=== PATIENT | female | born 1985 | race Caucasian/White ===

== ENCOUNTER → 2016-09-19 | Outpatient (CLI) | payer BC | END | disposition home or self-care (01) | LOC: LABWHC1 13:31 | PROVIDERS: ATTEND Obstetrics & Gynecology | DX: O02.1 Missed abortion (principal); Z3A.00 Weeks of gestation of pregnancy not specified | CPT/HCPCS: 36415; 84702 ==

== ENCOUNTER → 2017-01-04 | Outpatient (CLI) | payer BC | END | disposition home or self-care (01) | LOC: LABWHC1 13:57 | PROVIDERS: ATTEND Obstetrics & Gynecology | DX: O20.0 Threatened abortion (principal); Z3A.00 Weeks of gestation of pregnancy not specified | CPT/HCPCS: 36415; 84702 ==

== ENCOUNTER → 2017-01-06 | Outpatient (CLI) | payer BC | END | disposition home or self-care (01) | LOC: LABWHC1 14:20 | PROVIDERS: ATTEND Obstetrics & Gynecology | DX: O20.0 Threatened abortion (principal); Z3A.00 Weeks of gestation of pregnancy not specified | CPT/HCPCS: 36415; 84702 ==

== ENCOUNTER → 2021-08-03 | Outpatient (CLI) | payer BC ==
--- NOTE | 2021-08-03 08:34 | US ---
EXAMINATION TYPE: US thyroid st tissue head/neck DATE OF EXAM: 08/03/2021 COMPARISON: NONE CLINICAL HISTORY: R22.0,PALPABLE ABNORMALITY NECK. GLAND SIZE: Right Lobe: 5.3 x 1.7 x 1.8 cm Overall Parenchyma: homogenous Left Lobe: 4.4 x 2.0 x 1.7 cm Overall Parenchyma: homogeneous Isthmus Thickness: 0.3 cm NODULES RIGHT: # of nodules measured on right: 1 1. 2.7 X 1.3 x 1.7 cm, mid, solid or almost completely solid, hypoechoic nodule, which is wider edgar n tall, with lobulated or irregular margins, without echogenic foci. No prior This may be a cluster of nodules vs one nodule. LEFT: # of nodules measured on left: 1 1. 2.0 X 1.9 x 1.5 cm, mid, solid or almost completely solid, hypoechoic nodule, which is wider edgar n tall, with margins, echogenic foci. No prior Bilateral neck scanned, no evidence of lymphadenopathy. IMPRESSION: Nonspecific thyroid nodularity.
== END | disposition home or self-care (01) ==
LOC: RADUSWWP 07:03
PROVIDERS: ATTEND Obstetrics & Gynecology
DX: E04.2 Nontoxic multinodular goiter (principal)
CPT/HCPCS: 76536

== ENCOUNTER → 2021-08-19 | Outpatient (CLI) | payer BC ==
--- NOTE | 2021-08-20 12:25 | MM ---
Reason for exam: screening (asymptomatic). Baseline mammogram. History: Taking hormonal contraceptives for 15 years. Physical Findings: Nurse did not find any significant physical abnormalities on exam. MG Screening Mammo w CAD Bilateral CC and MLO view(s) were taken. The breast tissue is heterogeneously dense. This may lower the sensitivity of mammography. No suspicious calcifications are seen. Nodule upper outer right breast zone C. ASSESSMENT: Incomplete: need additional imaging evaluation, BI-RAD 0 RECOMMENDATION: Special view mammogram of the right breast. If lesion persists on supplemental views, image directed ultrasound is recommended. [facility] will attempt to contact patient to return for supplemental views and ultrasound if indicated.
== END | disposition home or self-care (01) ==
LOC: RADMAMWWP 10:26
PROVIDERS: ATTEND Obstetrics & Gynecology
DX: Z12.31 Encounter for screening mammogram for malignant neoplasm of breast (principal)
CPT/HCPCS: 77067

== ENCOUNTER → 2021-09-02 | Outpatient (CLI) | payer BC ==
--- NOTE | 2021-09-06 10:34 | MM ---
Reason for exam: additional evaluation requested from abnormal screening. Last mammogram was performed less than 1 month ago. History: Taking hormonal contraceptives for 15 years. Physical Findings: Breast exam preformed at baseline screening. MG Work Up Mamm w CAD RT Spot compression CC, spot compression MLO, and LM view(s) were taken of the right breast. Prior study comparison: August 19, 2021, bilateral MG screening mammo w CAD. The breast tissue is heterogeneously dense. This may lower the sensitivity of mammography. 9mm nodular asymmetry remains laterally and 7mm medially. However, no correlate on spot MLO or lateral view. These results were verbally communicated with the patient and result sheet given to the patient on 09/02/21. ASSESSMENT: Incomplete: need additional imaging evaluation, BI-RAD 0 RECOMMENDATION: Ultrasound of the right breast.
--- NOTE | 2021-09-06 10:35 | USB ---
Reason for exam: additional evaluation requested from abnormal screening. History: Taking hormonal contraceptives for 15 years. US Breast Workup RT Right complete breast ultrasound includes all four quadrants, the retroareolar region and axilla. Finding demonstrates a 0.6 x 0.4 x 0.6cm cystic lesion at 9 o'clock, benign, possible mammographic correlate. 6 month follow up mammogram recommended. These results were verbally communicated with the patient and result sheet given to the patient on 09/02/21. ASSESSMENT: Probably benign, BI-RAD 3 RECOMMENDATION: Follow-up diagnostic mammogram of the right breast in 6 months.
== END | disposition home or self-care (01) ==
LOC: RADMAMWWP 10:15
PROVIDERS: ATTEND Obstetrics & Gynecology
DX: N60.01 Solitary cyst of right breast (principal); N64.89 Other specified disorders of breast
CPT/HCPCS: 77065

== ENCOUNTER → 2022-06-14 | Outpatient (CLI) | payer BC ==
--- NOTE | 2022-06-14 10:02 | MM ---
Reason for Exam: Follow-up at short interval from prior study. Last screening mammogram was performed 10 month(s) ago. Patient History: Menarche at age 12. First Full-Term at age 28. Patient used Hormonal Contraceptives for 15 years. Last menstrual period: 05/15/2022 Risk Values: Rashida 5 year model risk: 0.4%. NCI Lifetime model risk: 11.2%. Prior Study Comparison: 08/19/2021 Bilateral Screening Mammogram, [facility]. 09/02/2021 Right Diagnostic Mammogram, [facility]. 09/02/2021 Right Diagnostic Ultrasound, [facility]. Tissue Density: Right: The breast tissue is heterogeneously dense. This may lower the sensitivity of mammography. Findings: Analyzed By CAD. The areas of concern on prior mammogram show no interval growth. No new distortion or suspicious group of microcalcification in the right breast. Overall Assessment: Incomplete: need additional imaging evaluation, BI-RAD 0 Management: Diagnostic Breast Ultrasound of the right breast. Repeat targeted ultrasound right breast. Electronically signed and approved by: Barry Sheldon M.D.
--- NOTE | 2022-06-14 10:22 | USB ---
Reason for Exam: Follow-up at short interval from prior study. Patient History: Menarche at age 12. First Full-Term at age 28. Patient used Hormonal Contraceptives for 15 years. Risk Values: Rashida 5 year model risk: 0.4%. NCI Lifetime model risk: 11.2%. Technique: Method: Targeted. Prior Study Comparison: 08/19/2021 Bilateral Screening Mammogram, [facility]. 09/02/2021 Right Diagnostic Mammogram, [facility]. Findings: The upper outer quadrant of the left breast, the axilla of the right breast and the retroareolar of the right breast were scanned. No solid or cystic masses are identified. Overall Assessment: Negative, BI-RAD 1 Management: Screening Mammogram of both breasts at age 39. Patient told the findings and recommendation at time of dictation. Electronically signed and approved by: Barry Sheldon M.D.
== END | disposition home or self-care (01) ==
LOC: RADMAMWWP 09:41
PROVIDERS: ATTEND Obstetrics & Gynecology
DX: R92.8 Other abnormal and inconclusive findings on diagnostic imaging of breast (principal)
CPT/HCPCS: 77065

== ENCOUNTER → 2023-05-17 | Outpatient (CLI) | payer BC ==
--- NOTE | 2023-05-17 16:07 | US ---
EXAMINATION TYPE: US thyroid st tissue head/neck DATE OF EXAM: 05/17/2023 COMPARISON: 08/03/21 CLINICAL INDICATION: Female, 37 years old with history of E04.9 Enlarged thyroid; GLAND SIZE: Right Lobe: 5.9 x 2.0 x 1.9 cm Overall Parenchyma: Homogeneous Left Lobe: 5.1 x 2.4 x 1.9 cm Overall Parenchyma: Homogeneous Isthmus Thickness: 0.30 cm NODULES RIGHT: # of nodules measured on right: 1 1. 2.8 X 1.6 x 2.6 cm, mid , solid or almost completely solid, hypoechoic nodule, which is wider th an tall, with lobulated or irregular margins, without echogenic foci. TR 4 Prior size: 2.7 x 1.3 x 1.7 cm LEFT: # of nodules measured on left: 1 1. 1.9 X 2.1 x 1.9 cm, mid , solid or almost completely solid, hypoechoic nodule, which is taller t chester wide, with lobulated or irregular margins, without echogenic foci. TR 5 Prior size: 2.0 x 1.9 x 1.5 cm ISTHMUS: # of nodules measured in the isthmus: 0 IMPRESSION: 1. Highly suspicious left lobe thyroid nodule. Fine-needle aspiration recommended at this is not been performed. 2. Stable appearing right lobe thyroid nodule. This is moderately suspicious. If this has not been bi opsied, fine needle aspiration can be performed. 2017 ACR TI-RADS LEVEL: TI-RADS 5 - Highly Suspicious: Follow if > 0.5 cm, FNA if > 1.0 cm *Highest TI-RADS level nodule reported
[2023-05-17 16:11] LABS: Basophils % (A) 0 %; Eosinophils # (A) 0.1 k/uL (0-0.7); Eosinophils % (A) 3 %; HCT 39.5 % (34.0-46.0); HGB 12.9 gm/dL (11.4-16.0); Lymphocytes # (A) 1.6 k/uL (1.0-4.8); Lymphocytes % (A) 28 %; MCH 32.7 pg (25.0-35.0); MCHC 32.6 g/dL (31.0-37.0); MCV 100.3 fL (80.0-100.0); Mean Platelet Volume 11.9; Monocytes # (A) 0.4 k/uL (0-1.0); Monocytes % (A) 7 %; Neutrophils # (A) 3.3 k/uL (1.3-7.7); Neutrophils % (A) 59 %; Platelet Count 177 k/uL (150-450); RBC 3.94 m/uL (3.80-5.40); RDW 12.3 % (11.5-15.5); WBC 5.5 k/uL (3.8-10.6)
[2023-05-18 05:26] LABS: % Iron Saturation 26.41 (12.00-45.00); Ferritin 79.5 ng/mL (10.0-291.0)
== END | disposition home or self-care (01) ==
LOC: RADUSWWP 14:18
PROVIDERS: ATTEND Internal Medicine
DX: E04.1 Nontoxic single thyroid nodule (principal); E04.9 Nontoxic goiter, unspecified; D69.6 Thrombocytopenia, unspecified
CPT/HCPCS: 76536; 82607; 82728; 82746; 83540; 83550; 85025

== ENCOUNTER 2023-06-30 17:39 | Emergency (ER) | payer BC ==
[2023-06-30] MEDS ORDERED: IBUPROFEN 600 MG TAB PO STA (18:19)
[2023-06-30] MEDS ORDERED: ACETAMINOPHEN TAB 500 MG TAB PO STA (18:19)
[2023-06-30] MEDS ORDERED: SODIUM CHLORIDE 0.9% 1,000 ML IV STA ×2 (18:19→21:12)
--- NOTE | 2023-06-30 18:20 | ED ---
Weakness HPI - General Chief complaint: Allergic Reaction Stated complaint: SOB-allergic reaction Time Seen by Provider: 06/30/23 17:55 Source: patient, family, RN notes reviewed, old records reviewed Mode of arrival: ambulatory Limitations: no limitations - History of Present Illness Initial comments: This is a 37-year-old female to the emergency department today. The patient today for evaluation regards to not feeling well weakness flush elevated heart rate. Patient recently treated for urinary tract infection with antibiotics with no improvement in symptoms. Patient did normal activity today and then follow she is given a pass out for lightheaded dizzy recently with back pain that coincided with urinary tract infection. Patient feels very flushed without any significant medical history other complaints. MD Complaint: generalized weakness (Near syncopal event lightheaded and dizzy) -: hour(s) Location: generalized, RLE Severity scale (1-10): 7 Quality: tingling Consistency: constant Improves with: none Worsens with: none Context: recent illness (Urinary tract infection) Associated Symptoms: dysuria, fever/chills - Related Data Previous Rx's Medication Instructions Recorded Sulfamethox-Tmp 800-160Mg [Bactrim 1 tab PO Q12HR #14 tab 06/30/23 DS 800-160 mg] Allergies Allergy/AdvReac Type Severity Reaction Status Date / Time No Known Allergies Allergy Verified 05/31/23 13:03 Review of Systems ROS Statement: Those systems with pertinent positive or pertinent negative responses have been documented in the HPI. ROS Other: All systems not noted in ROS Statement are negative. Past Medical History Past Medical History: Thyroid Disorder Additional Past Medical History / Comment(s): UTI History of Any Multi-Drug Resistant Organisms: None Reported Past Surgical History: No Surgical Hx Reported Additional Past Surgical History / Comment(s): wisdom teeth removed, varicose vein removed right upper thigh. Past Anesthesia/Blood Transfusion Reactions: No Reported Reaction Past Psychological History: No Psychological Hx Reported Smoking Status: Former smoker Past Alcohol Use History: Rare Past Drug Use History: Marijuana - Past Family History Mother Family Medical History: Thyroid Disorder General Exam Limitations: no limitations General appearance: alert, in no apparent distress, anxious Head exam: Present: atraumatic, normocephalic, normal inspection Eye exam: Present: normal appearance, PERRL, EOMI. Absent: scleral icterus, conjunctival injection, periorbital swelling ENT exam: Present: normal exam, mucous membranes moist Neck exam: Present: normal inspection. Absent: tenderness, meningismus, lymphadenopathy Respiratory exam: Present: normal lung sounds bilaterally. Absent: respiratory distress, wheezes, rales, rhonchi, stridor Cardiovascular Exam: Present: normal rhythm, tachycardia, normal heart sounds. Absent: systolic murmur, diastolic murmur, rubs, gallop, clicks GI/Abdominal exam: Present: soft, normal bowel sounds. Absent: distended, tenderness, guarding, rebound, rigid Extremities exam: Present: normal inspection, full ROM, normal capillary refill. Absent: tenderness, pedal edema, joint swelling, calf tenderness Back exam: Present: normal inspection Neurological exam: Present: alert, oriented X3, CN II-XII intact Psychiatric exam: Present: normal affect, normal mood Skin exam: Present: warm, dry, intact, normal color. Absent: rash Course Vital Signs 06/30/23 06/30/23 17:45 22:05 Temperature 99.5 F 98.2 F Pulse Rate 120 H 85 Respiratory 24 20 Rate Blood Pressure 179/88 114/60 O2 Sat by Pulse 99 98 Oximetry - Reevaluation(s) Reevaluation #1: 06/30/23 20:12 Medical record is reviewed Reevaluation #2: 06/30/23 20:12 Patient symptoms are improving Reevaluation #3: Patient informed results and questions answered Reevaluation #4: 06/30/23 20:12 Was pt. sent in by a medical professional or institution (, PA, PIGMENT MIXER, urgent care, hospital, or senior care...) When possible be specific @ -no Did you speak to anyone other than the patient for history (EMS, parent, family, police, friend...)? What history was obtained from this source @ -no Did you review nursing and triage notes (agree or disagree)? Why? @ -agree Are old charts reviewed (outside hosp., previous admission, EMS record, old EKG, old radiological studies, urgent care reports/EKG's, senior care records)? Report findings @ -yes Differential Diagnosis (chest pain, altered mental status, abdominal pain women, abdominal pain men, vaginal bleeding, weakness, fever, dyspnea, syncope, headache, dizziness, GI bleed, back pain, seizure, CVA, palpatations, mental health, musculoskeletal)? @ -prior EKG interpreted by me (3pts min.). @ -no X-rays interpreted by me (1pt min.). @ -no CT interpreted by me (1pt min.). @ -yes U/S interpreted by me (1pt. min.). @ -no What testing was considered but not performed or refused? (CT, X-rays, U/S, labs)? Why? @ -none What meds were considered but not given or refused? Why? @ -none Did you discuss the management of the patient with other professionals (professionals i.e. , PA, PIGMENT MIXER, lab, RT, psych nurse, social work program coordinator, director of student aid, teacher, fire officer, piano case and bench assembler)? Give summary @ -no Was smoking cessation discussed for >3mins.? @ -no Was critical care preformed (if so, how long)? @ -no Were there social determinants of health that impacted care today? How? (Homelessness, low income, unemployed, alcoholism, drug addiction, transportation, low edu. Level, literacy, decrease access to med. care, usp, rehab)? @ -none Was there de-escalation of care discussed even if they declined (Discuss DNR or withdrawal of care, Hospice)? DNR status @ -no What co-morbidities impacted this encounter? (DM, HTN, Smoking, COPD, CAD, Cancer, CVA, ARF, Chemo, Hep., AIDS, mental health diagnosis, sleep apnea, morbid obesity)? @ -none Was patient admitted / discharged? Hospital course, mention meds given and route, prescriptions, significant lab abnormalities, going to OR and other pertinent info. @ - 37 female to the emergency department for evaluation of weakness as well as patient feels flushed feel like she may pass out. Patient significant dehydrated with urinary tract infection likely does have hydronephrosis on computed tomography scan. Patient increased antibiotics for 2 weeks and she can be discharged home Discharge Undiagnosed new problem with uncertain prognosis? @ -no Drug Therapy requiring intensive monitoring for toxicity (Heparin, Nitro, Insulin, Cardizem)? @ -no Were any procedures done? @ -no Diagnosis/symptom? @ -Pyelonephritis Acute, or Chronic, or Acute on Chronic? @ -Acute Uncomplicated (without systemic symptoms) or Complicated (systemic symptoms)? @ -Complicated Side effects of treatment? @ -no Exacerbation, Progression, or Severe Exacerbation? @ -exacerbation Poses a threat to life or bodily function? How? (Chest pain, USA, AR, pneumonia, PE, COPD, DKA, ARF, appy, cholecystitis, CVA, Diverticulitis, Homicidal, Suicidal, threat to staff... and all critical care pts) @ -yes with pyelonephritis and sepsis Medical Decision Making - Medical Decision Making 37 female to the emergency department for evaluation of weakness as well as patient feels flushed feel like she may pass out. Patient significant dehydrated with urinary tract infection likely does have hydronephrosis on computed tomography scan. Patient increased antibiotics for 2 weeks and she can be discharged home - Lab Data Result diagrams: 06/30/23 19:50 06/30/23 19:50 Lab Results 06/30/23 06/30/23 06/30/23 Range/Units 19:50 19:50 19:50 WBC 8.5 (3.8-10.6) k/uL RBC 4.19 (3.80-5.40) m/uL Hgb 13.8 (11.4-16.0) gm/dL Hct 40.0 (34.0-46.0) % MCV 95.6 (80.0-100.0) fL MCH 32.9 (25.0-35.0) pg MCHC 34.4 (31.0-37.0) g/dL RDW 11.8 (11.5-15.5) % Plt Count 159 (150-450) k/uL MPV 11.5 Neutrophils % 79 % Lymphocytes % 14 % Monocytes % 5 % Eosinophils % 1 % Basophils % 0 % Neutrophils # 6.7 (1.3-7.7) k/uL Lymphocytes # 1.1 (1.0-4.8) k/uL Monocytes # 0.5 (0-1.0) k/uL Eosinophils # 0.0 (0-0.7) k/uL Basophils # 0.0 (0-0.2) k/uL Manual Slide Review Performed Large Platelets Present RBC Morphology Normal Sodium 133 L (137-145) mmol/L Potassium 4.1 (3.5-5.1) mmol/L Chloride 101 (98-107) mmol/L Carbon Dioxide 19 L (22-30) mmol/L Anion Gap 13 mmol/L BUN 18 H (7-17) mg/dL Creatinine 0.79 (0.52-1.04) mg/dL Est GFR (CKD-EPI)AfAm >90 (>60 ml/min/1.73 sqM) Est GFR (CKD-EPI)NonAf >90 (>60 ml/min/1.73 sqM) Glucose 98 (74-99) mg/dL Plasma Lactic Acid Aj (0.7-2.0) mmol/L Calcium 9.4 (8.4-10.2) mg/dL Phosphorus 4.4 (2.5-4.5) mg/dL Magnesium 2.2 (1.6-2.3) mg/dL Total Bilirubin 0.7 (0.2-1.3) mg/dL AST 29 (14-36) U/L ALT 16 (4-34) U/L Alkaline Phosphatase 63 (38-126) U/L Troponin I (0.000-0.034) ng/mL NT-Pro-B Natriuret Pep 38 pg/mL Total Protein 7.4 (6.3-8.2) g/dL Albumin 4.2 (3.5-5.0) g/dL TSH 0.709 (0.465-4.680) mIU/L Urine Color Colorless Urine Appearance Clear (Clear) Urine pH 6.5 (5.0-8.0) Ur Specific [place] 1.004 (1.001-1.035) Urine Protein Negative (Negative) Urine Glucose (UA) Negative (Negative) Urine Ketones Negative (Negative) Urine Blood Negative (Negative) Urine Nitrite Negative (Negative) Urine Bilirubin Negative (Negative) Urine Urobilinogen <2.0 (<2.0) mg/dL Ur Leukocyte Esterase Negative (Negative) 06/30/23 06/30/23 Range/Units 19:50 19:50 WBC (3.8-10.6) k/uL RBC (3.80-5.40) m/uL Hgb (11.4-16.0) gm/dL Hct (34.0-46.0) % MCV (80.0-100.0) fL MCH (25.0-35.0) pg MCHC (31.0-37.0) g/dL RDW (11.5-15.5) % Plt Count (150-450) k/uL MPV Neutrophils % % Lymphocytes % % Monocytes % % Eosinophils % % Basophils % % Neutrophils # (1.3-7.7) k/uL Lymphocytes # (1.0-4.8) k/uL Monocytes # (0-1.0) k/uL Eosinophils # (0-0.7) k/uL Basophils # (0-0.2) k/uL Manual Slide Review Large Platelets RBC Morphology Sodium (137-145) mmol/L Potassium (3.5-5.1) mmol/L Chloride (98-107) mmol/L Carbon Dioxide (22-30) mmol/L Anion Gap mmol/L BUN (7-17) mg/dL Creatinine (0.52-1.04) mg/dL Est GFR (CKD-EPI)AfAm (>60 ml/min/1.73 sqM) Est GFR (CKD-EPI)NonAf (>60 ml/min/1.73 sqM) Glucose (74-99) mg/dL Plasma Lactic Acid Aj 0.5 L (0.7-2.0) mmol/L Calcium (8.4-10.2) mg/dL Phosphorus (2.5-4.5) mg/dL Magnesium (1.6-2.3) mg/dL Total Bilirubin (0.2-1.3) mg/dL AST (14-36) U/L ALT (4-34) U/L Alkaline Phosphatase (38-126) U/L Troponin I <0.012 (0.000-0.034) ng/mL NT-Pro-B Natriuret Pep pg/mL Total Protein (6.3-8.2) g/dL Albumin (3.5-5.0) g/dL TSH (0.465-4.680) mIU/L Urine Color Urine Appearance (Clear) Urine pH (5.0-8.0) Ur Specific [place] (1.001-1.035) Urine Protein (Negative) Urine Glucose (UA) (Negative) Urine Ketones (Negative) Urine Blood (Negative) Urine Nitrite (Negative) Urine Bilirubin (Negative) Urine Urobilinogen (<2.0) mg/dL Ur Leukocyte Esterase (Negative) - Radiology Data Radiology results: report reviewed (CT of the abdomen and pelvis positive hydronephrosis), image reviewed Disposition Clinical Impression: UTI (urinary tract infection), Hydronephrosis Disposition: HOME SELF-CARE Condition: Good Instructions (If sedation given, give patient instructions): Urinary Tract Infection in Women (ED), Hydronephrosis (ED) Prescriptions: Sulfamethox-Tmp 800-160Mg [Bactrim DS 800-160 mg] 1 tab PO Q12HR #14 tab Is patient prescribed a controlled substance at d/c from ED?: No Referrals: Kole Leon MD [Primary Care Provider] - 1-2 days Time of Disposition: 21:10
--- NOTE | 2023-06-30 19:06 | CT ---
EXAMINATION TYPE: CT abdomen pelvis wo con CT DLP: 386.8 mGycm, Automated exposure control for dose reduction was used. DATE OF EXAM: 06/30/2023 6:46 PM COMPARISON: CT abdomen pelvis most recent from CLINICAL INDICATION:Female, 37 years old with history of weak; right flank pain, recent UTI TECHNIQUE: Axial CT of the abdomen and pelvis. Sagittal and coronal reformats were created on a [employer] workstation. Contrast used: mL of , (none if empty) Oral contrast used: without Oral Contrast (none if empty) FINDINGS: LOWER CHEST: Unremarkable ABDOMEN LIVER: Unremarkable GALLBLADDER AND BILE DUCTS: Unremarkable. PANCREAS: Unremarkable. SPLEEN: Unremarkable. ADRENAL GLANDS: Unremarkable. KIDNEYS AND URETERS: Mild right renal collecting system dilation compared to the left. No obstructing calculi visualized. PELVIS BLADDER: Unremarkable REPRODUCTIVE: Unremarkable. ABDOMEN & PELVIS STOMACH AND BOWEL: No evidence of bowel obstruction. The appendix demonstrates high density material within the lumen. Moderate to large amount of stool throughout the colon. PERITONEUM/RETROPERITONEUM: No evidence of pneumoperitoneum or free fluid. VASCULATURE: No evidence of aortic aneurysm. MUSCULOSKELETAL: No acute osseous abnormalities, left iliac bone bony island. Scattered other sclerot ic foci likely representing bone islands throughout the LS osseous structures. LYMPH NODES: No gross evidence for lymphadenopathy. SOFT TISSUE/ABDOMINAL WALL: Unremarkable IMPRESSION: 1. Mild right hydronephrosis without evidence for obstructing calculus: For recently passed stone. 2. High density material within the appendix could represent appendicoliths. 3. Moderate to large stool burden.
[2023-06-30 20:49] LABS: Basophils % (A) 0 %; Eosinophils % (A) 1 %; HGB 13.8 gm/dL (11.4-16.0); Lymphocytes # (A) 1.1 k/uL (1.0-4.8); Lymphocytes % (A) 14 %; MCH 32.9 pg (25.0-35.0); MCHC 34.4 g/dL (31.0-37.0); MCV 95.6 fL (80.0-100.0); Mean Platelet Volume 11.5; Monocytes # (A) 0.5 k/uL (0-1.0); Monocytes % (A) 5 %; Neutrophils # (A) 6.7 k/uL (1.3-7.7); Neutrophils % (A) 79 %; Platelet Count 159 k/uL (150-450); RBC 4.19 m/uL (3.80-5.40); RDW 11.8 % (11.5-15.5); WBC 8.5 k/uL (3.8-10.6)
[2023-06-30 20:57] LABS: Appearance,Urine Clear (Clear); Bilirubin,Urine Negative (Negative); Blood,Urine Negative (Negative); Color,Urine Colorless; Glucose,Urine (UA) Negative (Negative); Ketones,Urine Negative (Negative); Leukocyte Esterase,Urine Negative (Negative); Nitrite,Urine Negative (Negative); PH, Urine 6.5 (5.0-8.0); Protein,Urine Negative (Negative); Specific Gravity,Urine 1.004 (1.001-1.035); Urobilinogen,Urine <2.0 mg/dL (<2.0)
[2023-06-30 21:00] LABS: ALT 16 U/L (4-34); AST 29 U/L (14-36); African American GFR (CKD) >90 (>60 ml/min/1.73 sqM); Albumin 4.2 g/dL (3.5-5.0); Alkaline Phosphatase 63 U/L (38-126); Anion Gap 13 mmol/L; Blood Urea Nitrogen 18 mg/dL (7-17); Calcium 9.4 mg/dL (8.4-10.2); Carbon Dioxide 19 mmol/L (22-30); Chloride 101 mmol/L (98-107); Glucose 98 mg/dL (74-99); Magnesium 2.2 mg/dL (1.6-2.3); Non-African American GFR(CKD) >90 (>60 ml/min/1.73 sqM); Phosphorus 4.4 mg/dL (2.5-4.5); Potassium 4.1 mmol/L (3.5-5.1); Sodium 133 mmol/L (137-145); Total Bilirubin 0.7 mg/dL (0.2-1.3); Total Protein 7.4 g/dL (6.3-8.2)
[2023-06-30 21:09] LABS: NT-Pro-B-Type Natriuretic Pept 38 pg/mL
[2023-06-30 21:34] LABS: Large Platelets Present; RBC Morphology Normal
[2023-06-30 22:21] VITALS: BP 114/60; PULSE 85; RESP 20; TEMP 98.2
== END 2023-06-30 22:06 | disposition home or self-care (01) ==
LOC: EC 17:39
DX: N13.30 Unspecified hydronephrosis (principal); N39.0 Urinary tract infection, site not specified; Z87.891 Personal history of nicotine dependence; F12.90 Cannabis use, unspecified, uncomplicated
CPT/HCPCS: 36415; 83880; 80053; 83605; 83735; 84100; 84443; 84484; 85025; 81003; 74176; 99285; 96365; J0696

== ENCOUNTER → 2023-12-11 | Outpatient (CLI) | payer BC ==
--- NOTE | 2023-12-11 23:43 | US ---
EXAMINATION TYPE: US thyroid st tissue head/neck DATE OF EXAM: 12/11/2023 COMPARISON: NONE CLINICAL INDICATION: Female, 37 years old with history of E04.9 NONTOXIC GOITER, UNSPECIFIED; Enlarge d thyroid. Patient also feels lump posterior neck toward the right side x 1 month. Hx FNA. GLAND SIZE: Right Lobe: 5.3 x 1.9 x 2.0 cm Overall Parenchyma: homogeneous Left Lobe: 4.6 x 1.9 x 1.9 cm Overall Parenchyma: homogeneous Isthmus Thickness: 0.30 cm NODULES RIGHT: # of nodules measured on right: 2 1. 3.2 X 2.1 x 1.8 cm, mid-inf mid, solid or almost completely solid, hypoechoic nodule, which is w ider than tall, with smooth margins, without echogenic foci. Tear for Prior size: 2.8 x 1.6 x 2.6 cm 2. 1.3 X 1.2 x 0.9 cm, lower mid, solid or almost completely solid, hypoechoic nodule, which is wid er than tall, with smooth margins, without echogenic foci. Prior size: Not seen on prior LEFT: # of nodules measured on left: 1 1. 2.2 X 1.9 x 1.8 cm, mid mid, solid or almost completely solid, hypoechoic nodule, which is wider than tall, with smooth margins, without echogenic foci. TR 4 Prior size: 1.9 x 2.1 x 1.9 cm ISTHMUS: # of nodules measured in the isthmus: 0 Bilateral neck scanned. Scanned posterior neck slightly toward the right at patient's palpable area. Hypoechoic area seen jhoana suring 1.4 x 0.8 x 1.8 cm. IMPRESSION: Moderately suspicious nodules bilaterally. By history there has been a fine-needle aspiration. Correl ate with biopsy results 2017 ACR TI-RADS LEVEL: TR-RADS 4 - Moderately Suspicious: Follow if > 1 cm, FNA if > 1.5 cm *Highest TI-RADS level nodule reported
== END | disposition home or self-care (01) ==
LOC: RADUSWWP 10:06
PROVIDERS: ATTEND Internal Medicine
DX: E04.2 Nontoxic multinodular goiter (principal)
CPT/HCPCS: 76536

== ENCOUNTER → 2024-05-29 | Outpatient (CLI) | payer BC ==
[2024-05-29 15:43] LABS: ALT 14 U/L (8-44); AST 25 U/L (13-35); Albumin 4.5 g/dL (3.8-4.9); Albumin/Globulin Ratio 1.88 Ratio (1.60-3.17); Alkaline Phosphatase 67 U/L (41-126); Blood Urea Nitrogen 9.6 mg/dL (9.0-27.0); Calcium 9.9 mg/dL (8.7-10.3); Carbon Dioxide 27.5 mmol/L (21.6-31.8); Chloride 104 mmol/L (96-109); Globulin 2.4 g/dL (1.6-3.3); Glucose 94 mg/dL (70-110); LDL Cholesterol,Calculated 91.4 mg/dL (0.0-131.0); Potassium 4.9 mmol/L (3.5-5.5); Sodium 141 mmol/L (135-145); Total Bilirubin 0.5 mg/dL (0.3-1.2); Total Protein 6.9 g/dL (6.2-8.2); VLDL Calculation 15.36 mg/dL (5.00-40.00)
[2024-05-29 15:45] LABS: Basophils # (A) 0.03 X 10*3/uL (0.00-0.10); Basophils % (A) 0.7 %; Eosinophils # (A) 0.12 X 10*3/uL (0.04-0.35); Eosinophils % (A) 2.6 %; HCT 41.2 % (37.2-46.3); HGB 13.3 g/dL (12.0-15.0); Lymphocytes # (A) 1.43 X 10*3/uL (0.90-5.00); Lymphocytes % (A) 31.2 %; MCH 31.9 pg (27.0-32.0); MCHC 32.3 g/dL (32.0-37.0); MCV 98.8 FL (80.0-97.0); Mean Platelet Volume 13.5 FL (9.5-12.2); Monocytes # (A) 0.46 X 10*3/uL (0.20-1.00); NRBC Per 100 WBC 0 X 10*3/uL (0.00-0.01); Neutrophils # (A) 2.53 X 10*3/uL (1.80-7.70); Neutrophils % (A) 55.3 %; Platelet Count 167 X 10*3/uL (140-440); RBC 4.17 X 10*6/uL (4.10-5.20); WBC 4.58 X 10*3/uL (4.50-10.00)
== END | disposition home or self-care (01) ==
LOC: LABWHC1 09:19
PROVIDERS: ATTEND Internal Medicine
DX: Z00.00 Encounter for general adult medical examination without abnormal findings (principal)
CPT/HCPCS: 36415; 80053; 80061; 84443; 85025

== ENCOUNTER → 2024-07-01 | Outpatient (CLI) | payer BC ==
--- NOTE | 2024-07-01 09:47 | US ---
EXAMINATION TYPE: US thyroid st tissue head/neck DATE OF EXAM: 07/01/2024 COMPARISON: US thyroid 12/11/2023, 05/17/2023, 08/03/2021 ultrasound and FNA 05/31/2023 CLINICAL INDICATION: Female, 38 years old with history of E04.1 Thyroid nodule; F/U nodules TECHNIQUE: Grayscale and color Doppler imaging of the thyroid gland. FINDINGS: GLAND SIZE: Right Lobe: 5.1 x 2.1 x 2.0 cm Overall Parenchyma: heterogeneous Left Lobe: 4.3 x 2.3 x 1.7 cm Overall Parenchyma: heterogeneous Isthmus Thickness: 0.3 cm NODULES RIGHT: # of nodules measured on right: 2 1. 2.8 X 1.6 x 2.2 cm, mid, solid or almost completely solid, hypoechoic nodule, which is wider edgar n tall, with smooth margins, without echogenic foci. TR 4. Prior size: 3.2 x 1.8 x 2.1 cm 2. 1.3 X 0.8 x 1.3 cm, lower, solid or almost completely solid, hypoechoic nodule, which is wider t chester tall, with smooth margins, without echogenic foci. TR 4. Prior size: 1.3 x 0.9 x 1.2 cm LEFT: # of nodules measured on left: 2 1. 2.0 X 2.1 x 2.2 cm, mid, solid or almost completely solid, hypoechoic nodule, which is taller th an wide, with smooth margins, without echogenic foci. TR 4. Prior size: 2.2 x 1.8 x 1.9 cm 2. 0.6 X 0.4 x 0.8 cm, lower, solid or almost completely solid, isoechoic nodule, which is wider t chester tall, with ill-defined margins, without echogenic foci. TR 3. Prior size: Not visualized on prior ISTHMUS: # of nodules measured in the isthmus: 0 Bilateral neck scanned, no evidence of lymphadenopathy. Essentially stable nodules bilaterally with a new sub-centimeter nodule left lower lobe. IMPRESSION: Overall stable bilateral thyroid nodules with new subcentimeter left thyroid lobe TR 3 nodule. Follow -up thyroid ultrasound in one year is recommended. [facility], , 07/01/2024 9:45 AM
== END | disposition home or self-care (01) ==
LOC: RADUSWWP 09:13
PROVIDERS: ATTEND Internal Medicine
DX: E04.2 Nontoxic multinodular goiter (principal)
CPT/HCPCS: 76536